=== PATIENT | female | born 1980 | race Hispanic/Latino ===

== ENCOUNTER 2025-01-10 13:53 | Emergency (ER) | payer MEDICARE, OTHER ==
[~2025-01-10] VITALS: Ht 175.3 cm; Wt 109.3 kg
[~2025-01-10 13:53] MED LIST: AMLODIPINE BESY10 MG PO; AMPHETAMINE SALT5 MG PO; DIAZEPAM10 MG PO; DIAZEPAM5 MG PO; LOSARTAN POTASS25 MG PO; MYRBETRIQ25 MG PO; OLANZAPINE10 MG PO; OMEPRAZOLE20 MG PO; ONDANSETRON HCL4 MG PO; ONDANSETRON ODT8 MG PO; PERCOCET 5-3251 EACH PO; QUETIAPINE FUM300 M1 PO; VITAMIN D21250 MCG PO; ZOLPIDEM TARTRA10 MG PO
[2025-01-10] MEDS ORDERED: CYCLOBENZAPRINE10 MG PO (14:17)
[2025-01-10] MEDS ORDERED: CETIRIZINE HCL10 MG PO (14:17)
[2025-01-10] MEDS ORDERED: ONDANSETRON 4 MG TAB ODT SL ONE (15:00)
[2025-01-10] MEDS ORDERED: HYDROmorphone HCL 1 MG/ML SYR IM ONE (15:00)
[2025-01-10] MEDS ORDERED: PROMETHAZINE HC25 M1 PO (16:36)
[2025-01-10 16:45] VITALS: BP 166/111
[2025-01-10] MEDS ORDERED: PROMETHAZINE HCL 25 MG TAB PO ONE (16:45)
== END 2025-01-10 16:45 | disposition home or self-care (01) ==
LOC: ED 13:53
DX: N13.30 Unspecified hydronephrosis (principal); Z88.5 Allergy status to narcotic agent; Z88.2 Allergy status to sulfonamides; Z79.899 Other long term (current) drug therapy
CPT/HCPCS: 96372; 99283; A9270; J1171

== ENCOUNTER 2025-02-18 14:43 | Emergency (ER) | payer MEDICARE, OTHER ==
[~2025-02-18] VITALS: Ht 175.3 cm; Wt 97.7 kg
[~2025-02-18 14:43] MED LIST changes: +CETIRIZINE HCL10 MG PO; +CYCLOBENZAPRINE10 MG PO; +PROMETHAZINE HC25 M1 PO
[2025-02-18] MEDS ORDERED: BENZONATATE100 MG PO (15:56)
[2025-02-18] MEDS ORDERED: VENTOLIN HFA18 GM INH (15:57)
[2025-02-18] MEDS ORDERED: ROSUVASTATIN CA10 MG PO (15:57)
[2025-02-18] MEDS ORDERED: SODIUM CHLORIDE 0.9% 500 ML IV ONE (16:15)
[2025-02-18] MEDS ORDERED: ondansetron HCL 4 MG/2 ML VIAL IV ONE (16:15)
[2025-02-18] MEDS ORDERED: ACETAMINOPHEN 1,000 MG/100 ML VIAL IV ONE (16:30)
[2025-02-18] MEDS ORDERED: SODIUM CHLORIDE 0.9% 1,000 ML IV PRN (16:30)
[2025-02-18] MEDS ORDERED: PROCHLORPERAZINE EDISYLATE 10 MG/2 ML VIAL IV ONE (16:30)
[2025-02-18 17:15] LABS: BASOPHILS 0.9 % (0-2); EOSINOPHILS 0.2 % (0-6); HEMATOCRIT 42.9 % (35.0-50.0); HEMOGLOBIN 14.2 g/dL (12.0-18.0); LYMPHOCYTES 44.4 % (24-44); MCH 27.3 (27-36); MCHC 33.1 g/dl (30-36); MCV 82.5 fl (81-99); MONOCYTES 18.9 % (0-12); NEUTROPHILS 35.6 % (39-80); PLATELET COUNT 221 K/uL (140-440); RBC 5.21 M/ul (4.3-5.7); RDW 17.7 (10.5-15.0)
[2025-02-18 17:29] LABS: BILIRUBIN, URINE NEGATIVE (negative); BLOOD/HGB, URINE NEGATIVE (Negative); KETONE, URINE NEGATIVE (Negative); LEUK ESTERASE, URINE MODERATE (negative); NITRITE, URINE NEGATIVE (negative)
[2025-02-18 17:30] LABS: ALBUMIN 3.8 g/dL (3.4-5.0); ALBUMIN/GLOBULIN RATIO 1.06 (1.1-2.4); ANION GAP 14.7 (7-21); BILIRUBIN, TOTAL 0.3 mg/dL (0.2-1.0); BUN/CREATININE RATIO 13.55 (6.0-28.6); CALCIUM 8.6 mg/dL (8.5-10.1); CREATININE, SERUM 1.77 mg/dL (0.55-1.02); POTASSIUM 3.7 mmol/L (3.5-5.1); PROTEIN, TOTAL 7.4 g/dL (6.4-8.2)
[2025-02-18 17:40] LABS: BACTERIA, URINE 3+ /hpf (negative); CASTS, URINE NONE SEEN \\lpf; COLLECTION TYPE, URINE CLEAN CATCH; CRYSTALS, URINE NONE SEEN (0-1+); EPITHELIAL CELLS, URINE SQUAMOUS 1+ /lpf (0-1+); RED BLOOD CELLS, URINE 0-1 /hpf (0-5); REFLEX CULTURE, URINE Yes (No)
[2025-02-18] MEDS ORDERED: CEPHALEXIN500 M1 PO (19:15)
[2025-02-18] MEDS ORDERED: CEFTRIAXONE SODIUM 1 GM VIAL IV ONE (19:22)
[2025-02-18] MEDS ORDERED: CEFTRIAXONE SODIUM 1 GM in SODIUM CHLORIDE 0.9% 100 ML IV ONE (19:30)
[2025-02-18 21:04] VITALS: BP 127/96
== END 2025-02-18 21:04 ==
LOC: ED 14:43
PROVIDERS: Emergency Medicine
DX: N39.0 Urinary tract infection, site not specified (principal); Z88.5 Allergy status to narcotic agent; Z88.2 Allergy status to sulfonamides
CPT/HCPCS: 36415; 71045; 80053; 81001; 83735; 85025; 87088; 96361; 96365; 96375; 99284-25; J0131; J0696; J0780; J2405; J7030; J7040

== ENCOUNTER 2025-03-14 18:26 | Emergency (ER) | payer MEDICARE, OTHER ==
[~2025-03-14] VITALS: Ht 175.3 cm; Wt 98.6 kg
[~2025-03-14 18:26] MED LIST changes: +BENZONATATE100 MG PO; +CEPHALEXIN500 M1 PO; +ROSUVASTATIN CA10 MG PO; +VENTOLIN HFA18 GM INH
--- OUTSIDE RECORDS SUMMARY | 2025-03-14 18:33 | XMS ---
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 03/23/2024-Lea MASON PHONE: [phone] Anupama Henderson Psychologist: Clinical 06/29/2019-Current PHONE: [phone] -[facility]+ Dentist: [facility] PHONE: [phone] -Monty- Dentist: [facility] Current [facility] PHONE: [phone] -, Shira- Dentist: [facility] PHONE: [phone] Elyssa Delatorre Current PHONE: [phone] TAURUS BALDWIN Current PHONE: [phone] MOE RONQUILLO [facility] Current PHONE: [phone] SHIRA PRIMARY Clinic/Center: Primary Care [facility] PHONE: [phone] ENZO HOGAN Dental Hygienist Current PHONE: [phone] Care Guidelines exist for the following facilities: [facility] ( 05/20/2017 ) [facility] ( 04/29/2017 ) [facility] VISIT COUNT (12 MO.) 4 MAN [place] TOTAL 4 NOTE: Visits indicate total known visits. ED/UCC VISIT TRACKING (12 MO.) 03/14/2025 18:26 [facility] TYPE: Emergency COMPLAINT: - FLANK PAIN 02/18/2025 14:43 [facility] TYPE: Emergency COMPLAINT: - FLU SYMPTOMS DIAGNOSES: - Allergy status to narcotic agent - Allergy status to sulfonamides - Urinary tract infection, site not specified 01/10/2025 13:53 [facility] TYPE: Emergency COMPLAINT: - CATH PROBLEM DIAGNOSES: - Allergy status to narcotic agent - Allergy status to sulfonamides - Other intermediate frame tender (current) drug therapy - Unspecified abdominal pain - Unspecified hydronephrosis 08/11/2024 16:[address] [facility] [place] TYPE: Emergency COMPLAINT: - FLANK PAIN DIAGNOSES: - Acute pancreatitis without necrosis or infection, unspecified - Allergy status to narcotic agent - Allergy status to sulfonamides - Chronic kidney disease, unspecified - Noninfective gastroenteritis and colitis, unspecified - Other custodial (current) drug therapy - Unspecified abdominal pain INPATIENT VISIT TRACKING (12 MO.) No inpatient visits to display in this time frame [email or web address]
[2025-03-14 19:51] LABS: BILIRUBIN, URINE NEGATIVE (negative); BLOOD/HGB, URINE NEGATIVE (Negative); KETONE, URINE NEGATIVE (Negative); LEUK ESTERASE, URINE NEGATIVE (negative); NITRITE, URINE NEGATIVE (negative)
[2025-03-14] MEDS ORDERED: ondansetron HCL 4 MG/2 ML VIAL IV PRN (20:00)
[2025-03-14 20:01] LABS: BACTERIA, URINE 1+ /hpf (negative); CASTS, URINE NONE SEEN \\lpf; COLLECTION TYPE, URINE CLEAN CATCH; CRYSTALS, URINE NONE SEEN (0-1+); EPITHELIAL CELLS, URINE SQUAMOUS 1+ /lpf (0-1+); REFLEX CULTURE, URINE Yes (No)
[2025-03-14] MEDS ORDERED: FLONASE SENSIM5.9 ML NS (20:01)
[2025-03-14 20:47] LABS: BASOPHILS 0.8 % (0-2); EOSINOPHILS 1.3 % (0-6); HEMATOCRIT 40.4 % (35.0-50.0); HEMOGLOBIN 13.5 g/dL (12.0-18.0); LYMPHOCYTES 33.8 % (24-44); MCH 28.7 (27-36); MCHC 33.3 g/dl (30-36); MCV 86.1 fl (81-99); NEUTROPHILS 52.1 % (39-80); PLATELET COUNT 253 K/uL (140-440); RBC 4.69 M/ul (4.3-5.7); RDW 16.8 (10.5-15.0)
[2025-03-14 21:02] LABS: ALBUMIN 3.6 g/dL (3.4-5.0); ALBUMIN/GLOBULIN RATIO 1.13 (1.1-2.4); ANION GAP 13.5 (7-21); BILIRUBIN, TOTAL 0.2 mg/dL (0.2-1.0); BUN/CREATININE RATIO 9.09 (6.0-28.6); CALCIUM 8.3 mg/dL (8.5-10.1); CREATININE, SERUM 1.87 mg/dL (0.55-1.02); POTASSIUM 4.5 mmol/L (3.5-5.1); PROTEIN, TOTAL 6.8 g/dL (6.4-8.2)
[2025-03-14] MEDS ORDERED: METOCLOPRAMIDE HCL 10 MG/2 ML SDV IV ONE (21:30)
[2025-03-14] MEDS ORDERED: CIPRO500 MG PO (23:19)
[2025-03-14] MEDS ORDERED: REGLAN10 MG PO (23:19)
[2025-03-14] MEDS ORDERED: HYDROCODONE BIT/ACETAMINOPHEN 5/325 MG 1 TAB HOME.PACK PO PRN (23:30)
[2025-03-14] MEDS ORDERED: CIPROFLOXACIN 500 MG TAB PO ONE (23:30)
[2025-03-14 23:33] VITALS: BP 129/87
== END 2025-03-14 23:33 | disposition home or self-care (01) ==
LOC: ED 18:26
PROVIDERS: Emergency Medicine
DX: N13.30 Unspecified hydronephrosis (principal); Z88.5 Allergy status to narcotic agent; Z88.2 Allergy status to sulfonamides; Z79.899 Other long term (current) drug therapy
CPT/HCPCS: 36415; 74176; 80053; 81001; 84703; 85025; 87088; 96374; 96375; 99284-25; A9270; J2405; J2765

== ENCOUNTER 2025-04-08 21:44 | Emergency (ER) | payer MEDICARE, OTHER | END 2025-04-09 01:05 | disposition home or self-care (01) | LOC: ED 21:44 | DX: Z46.6 Encounter for fitting and adjustment of urinary device (principal); Z88.5 Allergy status to narcotic agent; Z88.2 Allergy status to sulfonamides ==

== ENCOUNTER 2025-11-07 18:31 | Emergency (ER) | payer MEDICARE, OTHER ==
[~2025-11-07] VITALS: Ht 167.6 cm; Wt 74.9 kg
--- OUTSIDE RECORDS SUMMARY | ~2025-11-07 | XMS | Continuity of Care Document ---
Demographics + + + | Address | [address] [place] [address] | | | [place] [address] | + + + | Preferred Language | Unknown | + + + | Marital Status | Unknown | + + + | Rastafari Affiliation | Unknown | + + + | Race | White | + + + | Ethnic Group | Not or | + + + Author + + + | Author | [facility] | + + + | Organization | [facility] | + + + | Address | [address] | | | [place] [address] | + + + | Phone | | + + + Care Team Providers + + + + | Care Hay Rake Operator Name | Role | Phone | + + + + Unavailable | Unavailable | + + + + Allergies No information. Encounters No information. Functional Status No information. Immunizations No information. Medications + + + + | date | description | facility | + + + + | (no date) | CETIRIZINE HCL | [facility] | | | | [facility] | + + + + | (no date) | Ergocalciferol (Vitamin | [facility] | | | D2) | [facility] | + + + + | (no date) | Fluticasone Furoate | [facility] | | | | [facility] | + + + + | (no date) | DIAZEPAM | [facility] | | | | [facility] | + + + + | (no date) | DIAZEPAM | [facility] | | | | [facility] | + + + + | (no date) | OMEPRAZOLE | [facility] | | | | [facility] | + + + + | (no date) | ONDANSETRON HCL | [facility] | | | | [facility] | + + + + | (no date) | AMLODIPINE BESYLATE | [facility] | | | | [facility] | + + + + | (no date) | OLANZAPINE | [facility] | | | | [facility] | + + + + | (no date) | AMPHET ASP/AMPHET/D-AMPHET | [facility] | | | | [facility] | + + + + | (no date) | Quetiapine Fumarate | [facility] | | | | [facility] | + + + + | (no date) | CYCLOBENZAPRINE HCL | [facility] | | | | [facility] | + + + + | (no date) | ZOLPIDEM TARTRATE | [facility] | | | | [facility] | + + + + | (no date) | ALBUTEROL SULFATE | [facility] | | | | [facility] | + + + + | (no date) | Rosuvastatin Calcium | [facility] | | | | [facility] | + + + + | (no date) | LOSARTAN POTASSIUM | [facility] | | | | [facility] | + + + + Problems No information. Procedures No information. Results/Labs No information. Social History + + + + | date | description | facility | + + + + | (no date) | Unknown if ever smoked | [facility] | | | | [facility] | + + + + Vital Signs No information."
[~2025-11-07 18:31] MED LIST changes: +CIPRO500 MG PO; +FLONASE SENSIM5.9 ML NS; +REGLAN10 MG PO
[2025-11-07] MEDS ORDERED: OLANZAPINE5 MG PO (18:46)
[2025-11-07] MEDS ORDERED: METOCLOPRAMIDE HCL 10 MG/2 ML SDV IV ONE (21:30)
[2025-11-07] MEDS ORDERED: KETOROLAC TROMETHAMINE 30 MG/ML VIAL IV ONE (21:30)
[2025-11-07] MEDS ORDERED: SODIUM CHLORIDE 0.9% 500 ML IV ONE (21:30)
[2025-11-07] MEDS ORDERED: IMITREX50 MG PO ×2 (21:36→22:37)
[2025-11-07 22:43] VITALS: BP 138/92
== END 2025-11-07 22:44 | disposition home or self-care (01) ==
LOC: ED 18:31
DX: G43.909 Migraine, unspecified, not intractable, without status migrainosus (principal); Z79.899 Other long term (current) drug therapy; Z88.5 Allergy status to narcotic agent; Z88.2 Allergy status to sulfonamides
CPT/HCPCS: 70450; 96372; 96374; 96375; 99283-25; J1200; J1885; J2765; J3030; J7040